=== PATIENT | male | born 1955 | race Caucasian/White ===

== ENCOUNTER → 2018-03-11 | Outpatient (CLI) | payer OTHER ==
--- NOTE | 2018-03-26 15:41 | Polysomnography ---
DATE OF STUDY: March 11, 2018 CHIEF COMPLAINT: Excessive daytime fatigue and sleepiness. INTERPRETATION: The patient came to the laboratory for a split-night study. During the diagnostic portion of the study, the patient slept for 120.5 minutes out of 140 minutes. The sleep efficiency was 86.1%. The sleep onset latency was 4 minutes. The latency to REM was 62 minutes. The patient spent 16.5 minutes in REM sleep which was 13.7% of the night. There were 1 apneic event and 22 hypopneic events. The apnea-hypopnea index was 11.5 events per hour. The minimal saturation was 87%. The patient did have some periodic limb movements. Minimal heart rate was 41 beats per minute. There were some increased leg movements. The Newton Sleep Score was 17. During the therapeutic portion of the night, the patient slept for 264 minutes out of 307 minutes. The sleep deficiency was 86%. Sleep onset latency was 17.5 minutes. The latency to REM was 23.5 minutes. The patient spent 75.5 minutes in REM sleep, which was 28.6% of the night. The patient spent 33.2% of the night in the supine position and the remainder of the night in the non-supine position. The medical billing service desensitized the patient to CPAP. Patient then initiated CPAP at 5 cm of water pressure and gradually increased to 10 cm of water pressure. The events were not successfully controlled on 10 cm of water pressure, and the patient was switched to BiPAP. The BiPAP was increased to 12/7 with successful elimination of the nocturnal events. INTERPRETATION 1. Mild obstructive sleep apnea with an increased Newton Sleep Score suggestive of severe daytime somnolence. 2. Successful treatment of obstructive sleep apnea with BiPAP. RECOMMENDATIONS 1. BiPAP at 12/7 with heated humidifier. 2. Achieve and maintain an ideal body weight. 3. Avoid alcohol or sedatives prior to retiring at night. 4. Follow up in 3 months to ensure efficacy and compliance with BiPAP. Job#: [id number]
== END ==
LOC: SLEEP 19:48
PROVIDERS: ATTEND Emergency Medicine
DX: G47.33 Obstructive sleep apnea (adult) (pediatric) (principal)
CPT/HCPCS: 95811